=== PATIENT | female | born 1995 | race Caucasian/White ===

== ENCOUNTER → 2020-07-22 | Outpatient (CLI) | payer OTHER ==
[~2020-07-22] MED LIST: AMOXICILLIN500 MG PO; COLACE100 MG PO
[2020-07-22 13:30] LABS: HEMOGLOBIN 14.2 gm/dl (12.3-15.3); RED BLOOD COUNT 5.02 M/UL (4.00-5.10); WHITE BLOOD COUNT 8.4 K/UL (4.5-11.0)
[2020-07-22 13:58] LABS: BUN/CREATININE RATIO 18 (0-10)
[2020-07-23 10:15] LABS: VITAMIN D, 25-HYDROXY 15.8 ng/mL (30.0-100.0)
[2020-07-23 12:15] LABS: THYROXINE (T4) 8.3 ug/dL (4.5-12.0)
== END ==
LOC: LAB 12:30
PROVIDERS: Nurse Practitioner
DX: Z13.9 Encounter for screening, unspecified (principal); M54.5 Low back pain
CPT/HCPCS: 36415; 72110; 80053; 80061; 84436; 84443; 84480; 85025

== ENCOUNTER → 2020-07-28 | Outpatient (CLI) | payer OTHER ==
[2020-07-29 08:14] LABS: THYROXINE (T4) 8.1 ug/dL (4.5-12.0)
== END ==
LOC: LAB 10:49
PROVIDERS: Nurse Practitioner
DX: E05.90 Thyrotoxicosis, unspecified without thyrotoxic crisis or storm (principal); M25.552 Pain in left hip
CPT/HCPCS: 36415; 73502; 84436; 84443; 84480

== ENCOUNTER → 2020-08-21 | Outpatient (CLI) | payer OTHER | LOC: EXRD 08-14 16:00 | DX: E03.9 Hypothyroidism, unspecified (principal); E04.2 Nontoxic multinodular goiter | CPT/HCPCS: 76536 ==

== ENCOUNTER → 2021-01-01 | Outpatient (CLI) | payer OTHER | LOC: LAB 07:29 | DX: R63.5 Abnormal weight gain (principal) | CPT/HCPCS: 36415; 82533 ==

== ENCOUNTER → 2021-02-11 | Outpatient (CLI) | payer OTHER | LOC: CT 09:30 | DX: E05.00 Thyrotoxicosis with diffuse goiter without thyrotoxic crisis or storm (principal) | CPT/HCPCS: 84703; Q9967 ==

== ENCOUNTER 2021-10-10 21:21 | Outpatient (CLI) | payer OTHER | END 2021-10-11 01:27 | disposition home or self-care (01) | LOC: GENOP 21:21 | DX: O47.1 False labor at or after 37 completed weeks of gestation (principal); O99.891 Other specified diseases and conditions complicating pregnancy; M54.9 Dorsalgia, unspecified | CPT/HCPCS: 83518; G0463 ==

== ENCOUNTER 2021-10-15 05:19 | Inpatient (IN) | payer OTHER ==
[2021-10-15 06:54] LABS: HEMOGLOBIN 12.7 gm/dl (12.3-15.3); RED BLOOD COUNT 4.59 M/UL (4.00-5.10); WHITE BLOOD COUNT 11.9 K/UL (4.5-11.0)
[2021-10-15] MEDS ORDERED: DOCUSATE SODIU100 MG PO (18:44)
[2021-10-15] MEDS ORDERED: IBUPROFEN600 MG PO (18:44)
[2021-10-15 20:50] LABS: HEMOGLOBIN 12.2 gm/dl (12.3-15.3)
[2021-10-16 04:41] LABS: HEMOGLOBIN 11.1 gm/dl (12.3-15.3)
== END 2021-10-17 15:22 | disposition home or self-care (01) | DRG 807 ==
LOC: OB 05:19
PROVIDERS: ADMIT Obstetrics & Gynecology
PROC: 10E0XZZ Delivery of Products of Conception, External Approach (ICD-10-PCS; principal; 2021-10-15)
PROC: 10907ZC Drainage of Amniotic Fluid, Therapeutic from Products of Conception, Via Natural or Artificial Opening (ICD-10-PCS; 2021-10-15)
PROC: 3E033VJ Introduction of Other Hormone into Peripheral Vein, Percutaneous Approach (ICD-10-PCS; 2021-10-15)
PROC: 3E0DXGC Introduction of Other Therapeutic Substance into Mouth and Pharynx, External Approach (ICD-10-PCS; 2021-10-15)
PROC: 4A1H7CZ Monitoring of Products of Conception, Cardiac Rate, Via Natural or Artificial Opening (ICD-10-PCS; 2021-10-15)
PROC: 10H073Z Insertion of Monitoring Electrode into Products of Conception, Via Natural or Artificial Opening (ICD-10-PCS; 2021-10-15)
PROC: 0UH97HZ Insertion of Contraceptive Device into Uterus, Via Natural or Artificial Opening (ICD-10-PCS; 2021-10-15)
PROC: 3E0234Z Introduction of Serum, Toxoid and Vaccine into Muscle, Percutaneous Approach (ICD-10-PCS; 2021-10-15)
DX: O99.824 Streptococcus B carrier state complicating childbirth (principal); Z37.0 Single live birth; Z20.822 Contact with and (suspected) exposure to COVID-19; O99.52 Diseases of the respiratory system complicating childbirth; J45.909 Unspecified asthma, uncomplicated; E03.9 Hypothyroidism, unspecified; O72.1 Other immediate postpartum hemorrhage; O99.284 Endocrine, nutritional and metabolic diseases complicating childbirth; Z3A.39 39 weeks gestation of pregnancy; Z98.890 Other specified postprocedural states; Z28.310 Unvaccinated for COVID-19; Z82.49 Family history of ischemic heart disease and other diseases of the circulatory system; Z23 Encounter for immunization
CPT/HCPCS: 36415; 82800; 85014; 85018; 85025; 85461; 86850; 90715; J0690; J2210; J2405; J2590; J7120

== ENCOUNTER 2022-02-04 00:23 | Emergency (ER) | payer OTHER ==
[~2022-02-04 00:23] MED LIST changes: +DOCUSATE SODIU100 MG PO; +IBUPROFEN600 MG PO
== END 2022-02-04 03:55 | disposition home or self-care (01) ==
LOC: ER1 00:23
DX: J02.0 Streptococcal pharyngitis (principal); Z20.822 Contact with and (suspected) exposure to COVID-19
CPT/HCPCS: 87081; 87880; 96372; 99283; J0561; J1885; U0002